=== PATIENT | male | born 1935 | race Caucasian/White ===

== ENCOUNTER 2019-03-29 12:06 | Inpatient (IN) | payer OTHER ==
[~2019-03-29] VITALS: Ht 180.3 cm; Wt 97.5 kg
[~2019-03-29 12:06] MED LIST: AMLODIPINE BESYL5 MG; ASPIRIN325; CO Q-10100 MG; PRAVACHOL40 MG; TOPROL XL50 MG; [UNRECOGNIZED DRUG - OTHER]
[2019-03-29 12:14] VITALS: BP 142/49
[2019-03-29 12:32] LABS: ABSOLUTE NEUTROPHILS 4.2 thou/uL (1.4-8.2); BASOPHILS 1.2 % (0.0-2.0); EOSINOPHILS 3.1 % (0.0-3.0); HEMATOCRIT 39.2 % (42.0-52.0); HEMOGLOBIN 13.6 gm/dL (14.0-18.0); LYMPHOCYTES 38.3 % (24.0-44.0); MCHC 34.8 g/dL (28.0-37.0); MCV 92.2 fL (80.0-100.0); MONOCYTES 8.8 % (1.0-8.0); PLATELET COUNT 156 thou/uL (150-400); POLYS 48.6 % (36.0-66.0); RBC 4.25 mil/uL (4.50-6.00); RDW 12.9 % (10.5-14.5); WBC 8.6 thou/uL (4.0-11.0)
[2019-03-29 12:40] LABS: ANION GAP 9 mmol/L (7-16); BUN 17 mg/dL (7-18); CALCIUM 9.2 mg/dL (8.5-10.1); CHLORIDE 103 mmol/L (98-107); CO2 25 mmol/L (21-32); GLUCOSE 146 mg/dL (74-106); POTASSIUM 4.1 mmol/L (3.5-5.1); SODIUM 137 mmol/L (136-145)
[2019-03-29 12:50] LABS: ALBUMIN 3.7 g/dL (3.4-5.0); SGOT 30 U/L (15-37); SGPT 44 U/L (30-65); TOTAL BILIRUBIN 0.5 mg/dL (<0.1-1.0); TOTAL PROTEIN 6.5 g/dL (6.4-8.2); TROPONIN-I <0.06 ng/mL (<0.06)
--- NOTE | 2019-03-30 09:25 | EKG ---
[address] [address] ELECTROCARDIOGRAM REPORT Name: DANIEL BEAULIEU Room #: 170-12 ADM IN M.R.#: [id number] ������������������ Admission: 03/29/19 ������������������ Attend Phys: Souleymane Edouard MD Discharge: ������������������ Date of : 31 Report #: [id number] ����������������������������������������������������������������� [id number] THIS REPORT FOR: //name// [facility] ED Test Date: 2019-03-29 Test Time: 12:11:07 Pat Name: DANIEL BEAULIEU Department: Room: 170 12 Gender: M Facility Manager: Vicente : 1935 Requested By: Pauly Peraza Order Number: [id number] MD: Aaron Marie Measurements Intervals [place] Rate: 62 P: 34 ND: 177 QRS: -5 QRSD: 117 T: 39 QT: 408 QTc: 415 Interpretive Statements Sinus rhythm No significant abnormality Compared to ECG 10/24/2010 07:53:26 No significant change was found Electronically Signed On 03-30-2019 9:25:28 CDT by Aaron Marie [email or web address] ��������������������������������������������� <ELECTRONICALLY SIGNED> ���������������������������������������� By: Aaron Marie MD, [facility] ��������������������������������������������� 03/30/19 0925 D: [id number] 10 Aaron Marie MD, FACC /EPI
[2019-03-30 09:47] LABS: CHOLESTEROL 155 mg/dL (<200); HDL CHOLESTEROL 40 mg/dL (>40); LDL CHOLESTEROL 85 mg/dL (<100); TC:HDL 3.9 Ratio (Not establshd); TRIGLYCERIDE 150 mg/dL (<150); VLDL 30 mg/dL (<40)
[2019-03-30 12:30] VITALS: BP 106/62
[2019-03-30 15:35] VITALS: BP 146/67
--- NOTE | 2019-03-30 16:21 | CATHLAB ---
[facility] [address] [employer] [place] [address] INVASIVE PROCEDURE REPORT Name: DANIEL BEAULIEU Room #: 209-P ADM IN M.R.#: [id number] ������������� Admission: 03/29/19 ������������� Attend Phys: Souleymane Edouard MD Discharge: ��� ������������� ��� Date of : 31 Date of Service: 03/30/19 1621 �� Report #: [id number] �������� ��������������������������������������������[id number] THIS REPORT FOR: //name// APPROVED REPORT Study performed: 03/30/2019 12:34:10 Patient Details Patient Status: ED Room #: The patient is a 83 year-old male Event Personnel Yuniel Bill Fan Blade Truer, Agustin Monahan RN, Donald Oakley RTR John, Marian Shetty RTR, PROJECT MGR Monitor Procedures Performed Art Access - R femoral artery* Left Heart Cath w/or w/o Coronaries 0909069 [facility] FFR 3012418 FFR Hemostasis w/ Mynx 28044 Initial Mod Sed Same Phys/QHP Gr5y 110085 17336 Mod Sed Same Phys/QHP Ea 732870 Aortogram Abdominal Peripheral Angio 791225 Indication Chest pain Procedure Narrative The Right Groin^ was infiltrated with 1% Lidocaine subcutaneous anesthesia. A PINNACLE 6FR Sheath #[id number] sheath was inserted into the RFA^. Coronary angiography was performed using coronary diagnostic catheters. The right coronary system was accessed and visualized with a JR4 catheter. The left coronary system was accessed and visualized with a JL4 catheter. The left ventricle was accessed and visualized with a Pigtail catheter. Left ventricular/Aortic Valve gradient assessed . Left ventriculogram was performed in 30 degree projection. An aortogram of the abdominal aorta was performed. Closure device was deployed with a 6 Fr MYNXGRIP 6/7F #[id number]. The patient tolerated the procedure well and there were no complications associated with the procedure. There was no hematoma. Intraoperative Conscious Sedation Sedation start time: 12:44 Case end Time: 13:35 Fentanyl 50 mcg Versed 1.5 mg Fluoro Time: 4.09 minutes Dose: DAP 5315.90 cGycm2 [address] [address] INVASIVE PROCEDURE REPORT Name: BRITTNEEDANIEL AMI Room #: 209-P [facility] IN .R.#: [id number] ������������� Admission: 03/29/19 ������������� Attend Phys: Souleymane Edouard MD Discharge: ��� ������������� ��� Date of : 31 Date of Service: 03/30/19 1621 �� Report #: [id number] �������� ��������������������������������������������[id number] Contrast Type and Amount: Omnipaque 135 ml Hemodynamics The aortic pressure is 143/63 mmHg with a mean of 85 mmHg. The left ventricular pressure is 132/7 mmHg with a mean of mmHg. The left ventricular end diastolic pressure is 22 mmHg. PCI Technique Lesion Percutaneous coronary intervention was performed on the mid left anterior descending artery segment. A LAUNCHER 6FR EBU 3.5 #[id number] Guide Catheter was used to engage the ostium. A AerSafety[employer]ified Pressure Wire 175 cm [id number] Interventional Guidewire was used to cross the lesion. 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 #3 left main with mild disease giving rise to LAD and circumflex #4 LAD with previous stents proximal and proximal mid eccentric lesion of 60% after diagonal and then more distal between 2 prior stents is a 60-70% eccentric lesion filling diffusely diseased LAD #5 IFR of the LAD with a pressure/flow wire was performed 0.95. This would indicate no intervention for close observation follow-up of the moderate tandem LAD lesions. #6 eccentric 60-70% proximal circumflex OM lesion not flow limiting filling a large OM system. #7 dominant right coronary artery with mild disease distal eccentric 50% lesion filling the PDA FARIBA Recommendations and plan: Continue aggressive risk factor modification. Did instantaneous flow on the LAD lesions. They do not appear to be hemodynamically significant. There are moderate nature as is the proximal circumflex lesion. We'll continue aggressive therapy. No current intervention. Follow-up will be arranged. Will obtain Doppler ultrasound on renal arteries. [facility] [address] [place] [address] INVASIVE PROCEDURE REPORT Name: BRITTNEEDANIEL AMI Room #: 209-P ADM IN M.R.#: [id number] ������������� Admission: 03/29/19 ������������� Attend Phys: Souleymane Edouard MD Discharge: ��� ������������� ��� Date of : 31 Date of Service: 03/30/19 1621 �� Report #: [id number] �������� ��������������������������������������������[id number] We'll schedule as an outpatient. Recently labile hypertension will follow-up. ��������������������������������������������� <ELECTRONICALLY SIGNED> ���������������������������������������� By: Yuniel Bill MD, FACC ��������������������������������������������� 03/30/19 162 20 20 Yuniel Bill MD, FACC /INF
--- NOTE | 2019-03-30 17:49 | NUR ---
PT TO THE UNIT POST CATH - ORIENTED TO ROOM AND BED SPACE - VSS POST PROCEDURE - GROIN SITE C/D/I. PT HAS BEEN MOVING ABOUT IN BED A LITTLE WITH GROIN SITE STABLE. LAVERNE DIET AND FLUIDS. PT WITH CO'S OF PAIN IN NECK AND FACE GIVEN TYLENOL WITH MOD EFFECT. LAVERNE DIET AND FLUIDS WITH NO CO'S OF NAUSEA. AT THE BEDSIDE. APPEARS TO BE RESTING AT THE PRESENT TIME.
[2019-03-30 20:01] VITALS: BP 118/66
[2019-03-30 23:48] VITALS: BP 137/49
[2019-03-31 03:52] LABS: CALCIUM 8.5 mg/dL (8.5-10.1); POTASSIUM 4.1 mmol/L (3.5-5.1)
[2019-03-31 05:26] VITALS: BP 126/56
--- NOTE | 2019-03-31 08:52 | EKG ---
[address] [address] ELECTROCARDIOGRAM REPORT Name: DANIEL BEAULIEU Room #: 209-P ADM IN M.R.#: [id number] ������������������ Admission: 03/29/19 ������������������ Attend Phys: Souleymane Edouard MD Discharge: ������������������ Date of : 31 Report #: [id number] ����������������������������������������������������������������� [id number] THIS REPORT FOR: //name// [facility] Test Date: 2019-03-31 Test Time: 07:09:16 Pat Name: DANIEL BEAULIEU Department: Room: 209 P Gender: M Credit Card Analyst: ARON : 1935 Requested By: Merline Parker Order Number: [id number] MD: Aaron Marie Measurements Intervals [place] Rate: 71 P: 42 [place]: 171 QRS: -25 QRSD: 107 T: 17 QT: 522 QTc: 568 Interpretive Statements Sinus rhythm Abnormal R-wave progression, early transition Nonspecific T wave abnormality Prolonged QT interval Compared to ECG 03/29/2019 12:11:07 T-wave abnormality now present Prolonged QT interval now present Electronically Signed On 03-31-2019 8:52:42 CDT by Aaron Marie [email or web address] ��������������������������������������������� <ELECTRONICALLY SIGNED> ���������������������������������������� By: Aaron Marie MD, [facility] ��������������������������������������������� 03/31/19 0852 Aaron Marie MD, [facility] /EPI
--- NOTE | 2019-03-31 09:01 | NUR ---
ASSESSMENTS CHARTED. PATIENT COMPLAINED OF HEADACHE AFTER START OF SHIFT THAT TYLENOL DID NOT CHANGE. SPOKE WITH SARA LUNA WHO GAVE ONETIME DOSE OF IBUPROFIN WHICH ALSO DID NOT TOUCH THE HEADACHE. SPOKE WITH SARA AGAIN WHO CAME UP TO SEE THE PATIENT AND ORDERED A CT OF HEAD AND AIC. DID NOT WANT TO GIVE ANY STRONGER MED TILL RESULTS WERE BACK. PATIENT HAD RECEIVED SOME RELIEF BY THE END OF SHIFT. PATIENT HAD BEEN TO THE PROFESSOR OF PHILOSOPHY THE DAY BEFORE WITH NO NEW INTERVENTIONS.
[2019-03-31] MEDS ORDERED: LISINOPRIL20 MG PO (11:32)
[2019-03-31 11:51] VITALS: BP 137/56
--- NOTE | 2019-03-31 12:21 | NUR ---
ASSESSMENT CHARTED. PT ALERT AND ORIENTED. VSS. NEW ORDERS NOTED. ORDERS GIVEN TO DISCHARGE PT TO HOME. DISCHARGE INSTRUCTIONS GIVEN TO PT. PT VERBERLIZE UNDERSTANDING.
[2019-03-31 23:07] LABS: GLYCOHEMOGLOBIN (HGB A1C) 6.1 % (4.8-5.6)
== END 2019-03-31 12:36 | disposition home or self-care (01) | DRG 251 ==
LOC: ER 12:06 → EROBS 15:49 → 2N 15:49 → ENTRNSPT 03-31 12:20 → EDTRNSPTSTS 03-31 12:22 → 2N 03-31 12:36
PROVIDERS: Emergency Medicine; Nurse Practitioner Adult Health; Nurse Practitioner Family; ADMIT Internal Medicine
PROC: 4A033BC Measurement of Arterial Pressure, Coronary, Percutaneous Approach (ICD-10-PCS; principal; 2019-03-30)
PROC: 4A023N7 Measurement of Cardiac Sampling and Pressure, Left Heart, Percutaneous Approach (ICD-10-PCS; principal; 2019-03-30)
PROC: B4101ZZ Fluoroscopy of Abdominal Aorta using Low Osmolar Contrast (ICD-10-PCS; principal; 2019-03-30)
PROC: 02703ZZ Dilation of Coronary Artery, One Artery, Percutaneous Approach (ICD-10-PCS; principal; 2019-03-30)
PROC: B2151ZZ Fluoroscopy of Left Heart using Low Osmolar Contrast (ICD-10-PCS; principal; 2019-03-30)
PROC: B2111ZZ Fluoroscopy of Multiple Coronary Arteries using Low Osmolar Contrast (ICD-10-PCS; principal; 2019-03-30)
DX: R07.9 Chest pain, unspecified (principal); I10 Essential (primary) hypertension; E78.00 Pure hypercholesterolemia, unspecified; K21.9 Gastro-esophageal reflux disease without esophagitis; I25.10 Atherosclerotic heart disease of native coronary artery without angina pectoris; E78.5 Hyperlipidemia, unspecified; I65.29 Occlusion and stenosis of unspecified carotid artery; Z98.42 Cataract extraction status, left eye; Z98.41 Cataract extraction status, right eye; Z95.5 Presence of coronary angioplasty implant and graft; Z79.82 Long term (current) use of aspirin; Z88.8 Allergy status to other drugs, medicaments and biological substances; Z87.891 Personal history of nicotine dependence; Z79.899 Other long term (current) drug therapy; Z82.49 Family history of ischemic heart disease and other diseases of the circulatory system
CPT/HCPCS: 10081